=== PATIENT | male | born 1995 | race Caucasian/White ===

== ENCOUNTER 2021-08-21 22:04 | Emergency (ER) | payer MEDICAID ==
[2021-08-21] MEDS ORDERED: SODIUM CHLORIDE 0.9% 1,000 ML IV STA (22:40)
[2021-08-21] MEDS ORDERED: ONDANSETRON 4 MG/2 ML VIAL IVP STA (22:40)
[2021-08-21] MEDS ORDERED: KETOROLAC 15 MG/ML 1 ML VIAL IVP STA (22:40)
--- NOTE | 2021-08-21 22:43 | ED ---
General Adult HPI - General Chief complaint: Back Pain/Injury Stated complaint: Back/Flank pain Time Seen by Provider: 08/21/21 22:36 Source: patient, RN notes reviewed Mode of arrival: ambulatory Limitations: no limitations - History of Present Illness Initial comments: This is a pleasant 26-year-old male who presents emergency by complaining of right flank pain. Patient states this morning on for a few hours. Patient states when he went to work he thought was pulled muscles abdomen. However he now notes that the pain has migrated up to the right flank pain comes all-around from the right CVA area. Patient did have some nausea and vomiting. Does ascertain that the pain radiated into the testicle area but only transiently. He denies any testicular or scrotal pain now. No hematuria. No fever or chills. No headache, no fever or chills, no changes in vision or hearing, no sore throat or difficulty with speech, no neck pain, no chest pain or shortness of breath, no abdominal pain, no nausea or vomiting, no changes in urination or bowel movements, no numbness or tingling, no extremity pain, no skin rashes or les ions. Patient has history of herniorrhaphy. No history kidney stones. - Related Data Previous Rx's Medication Instructions Recorded HYDROcodone/APAP 5-325MG [[place] 1 tab PO Q6HR PRN 3 Days #12 tab 08/22/21 5-325] Naproxen [Naprosyn] 500 mg PO Q12HR #24 tab 08/22/21 Ondansetron [Zofran ODT] 4 mg PO Q8HR #20 tab 08/22/21 Tamsulosin [Flomax] 0.4 mg PO DAILY #7 cap 08/22/21 Allergies Allergy/AdvReac Type Severity Reaction Status Date / Time No Known Allergies Allergy Verified 08/21/21 22:33 Review of Systems ROS Statement: Those systems with pertinent positive or pertinent negative responses have been documented in the HPI. ROS Other: All systems not noted in ROS Statement are negative. Past Medical History Past Medical History: No Reported History History of Any Multi-Drug Resistant Organisms: None Reported Past Surgical History: No Surgical Hx Reported Past Psychological History: No Psychological Hx Reported Smoking Status: Never smoker Past Alcohol Use History: None Reported Past Drug Use History: None Reported General Exam Limitations: no limitations General appearance: alert, in no apparent distress Head exam: Present: atraumatic, normocephalic, normal inspection Eye exam: Present: normal appearance, PERRL, EOMI. Absent: scleral icterus, conjunctival injection, periorbital swelling ENT exam: Present: normal exam, mucous membranes moist Neck exam: Present: normal inspection, full ROM. Absent: tenderness, meningismus, lymphadenopathy Respiratory exam: Present: normal lung sounds bilaterally. Absent: respiratory distress, wheezes, rales, rhonchi, stridor Cardiovascular Exam: Present: regular rate, normal rhythm, normal heart sounds. Absent: systolic murmur, diastolic murmur, rubs, gallop, clicks GI/Abdominal exam: Present: soft, normal bowel sounds. Absent: distended, tenderness, guarding, rebound, rigid Extremities exam: Present: normal inspection, full ROM, normal capillary refill. Absent: tenderness, pedal edema, joint swelling, calf tenderness Back exam: Present: normal inspection, CVA tenderness (R). Absent: CVA tenderness (L) Neurological exam: Present: alert, oriented X3, CN II-XII intact Psychiatric exam: Present: normal affect, normal mood Skin exam: Present: warm, dry, intact, normal color. Absent: rash Course Vital Signs 08/21/21 08/21/21 22:31 23:58 Temperature 98.1 F Pulse Rate 109 H 78 Respiratory 20 18 Rate Blood Pressure 153/106 132/92 O2 Sat by Pulse 95 95 Oximetry - Reevaluation(s) Reevaluation #1: 08/22/21 00:09 Medical record is reviewed Symptoms are improved here in the emergency department Patient is informed of results and questions answered Patient in no distress Medical Decision Making - Medical Decision Making Patient symptomology most consistent with ureterolithiasis. Other etiologies such as appendicitis, gallbladder disease, pancreatitis, colitis or other intra- abdominal inflammatory versus infectious etiology is possible but less likely. Patient has a 3 mm distal right ureteral stone as well as a 1 cm intrarenal stone on the right. Discussed all findings with the patient. Discussed treatment plan. Patient should pass the stone. Discussed medications as well as hydration strategies. Patient voiced understanding. All questions answered. Gave the patient follow-up with urology. Urine strainer provided. Discussed possible stone composition. Patient was told to return to the ER for any signs or symptoms worsen. Told to return immediately if any other problems arise. All questions answered. Treatment plan discussed. Patient in agreement Every effort has been made to ensure accuracy of this dictation. However, due to the limitations of electronic medical records and dictation devices, errors in charting still occur. - Lab Data Result diagrams: 08/21/21 22:55 08/21/21 22:55 Lab Results 08/21/21 08/21/21 08/21/21 Range/Units 22:55 22:55 22:55 WBC 8.4 (3.8-10.6) k/uL RBC 5.54 (4.30-5.90) m/uL Hgb 16.9 (13.0-17.5) gm/dL Hct 49.0 (39.0-53.0) % MCV 88.5 (80.0-100.0) fL MCH 30.5 (25.0-35.0) pg MCHC 34.4 (31.0-37.0) g/dL RDW 12.8 (11.5-15.5) % Plt Count 248 (150-450) k/uL MPV 7.3 Neutrophils % 68 % Lymphocytes % 22 % Monocytes % 4 % Eosinophils % 4 % Basophils % 1 % Neutrophils # 5.7 (1.3-7.7) k/uL Lymphocytes # 1.8 (1.0-4.8) k/uL Monocytes # 0.4 (0-1.0) k/uL Eosinophils # 0.3 (0-0.7) k/uL Basophils # 0.1 (0-0.2) k/uL Sodium 142 (137-145) mmol/L Potassium 3.8 (3.5-5.1) mmol/L Chloride 107 (98-107) mmol/L Carbon Dioxide 27 (22-30) mmol/L Anion Gap 8 mmol/L BUN 11 (9-20) mg/dL Creatinine 0.93 (0.66-1.25) mg/dL Est GFR (CKD-EPI)AfAm >90 (>60 ml/min/1.73 sqM) Est GFR (CKD-EPI)NonAf >90 (>60 ml/min/1.73 sqM) Glucose 127 H (74-99) mg/dL Calcium 8.9 (8.4-10.2) mg/dL Total Bilirubin 0.7 (0.2-1.3) mg/dL AST 26 (17-59) U/L ALT 46 (4-49) U/L Alkaline Phosphatase 79 (38-126) U/L Total Protein 7.3 (6.3-8.2) g/dL Albumin 4.3 (3.5-5.0) g/dL Lipase 45 (23-300) U/L Urine Color Yellow Urine Appearance Clear (Clear) Urine pH 5.5 (5.0-8.0) Ur Specific [place] 1.026 (1.001-1.035) Urine Protein 1+ H (Negative) Urine Glucose (UA) Negative (Negative) Urine Ketones Negative (Negative) Urine Blood Large H (Negative) Urine Nitrite Negative (Negative) Urine Bilirubin Negative (Negative) Urine Urobilinogen <2.0 (<2.0) mg/dL Ur Leukocyte Esterase Negative (Negative) Urine RBC >182 H (0-5) /hpf Urine WBC 5 (0-5) /hpf Ur Squamous Epith Cells <1 (0-4) /hpf Urine Mucus Many H (None) /hpf - Radiology Data Radiology results: report reviewed, image reviewed Disposition Clinical Impression: Ureterolithiasis, Kidney stone on right side, Renal colic on right side Disposition: HOME SELF-CARE Condition: Good Instructions (If sedation given, give patient instructions): Kidney Stones (ED), How to Strain Your Urine (ED) Additional Instructions: Strain urine as directed. Make a follow-up appointment with either your regular doctor or the urologist as discussed. Follow-up with your regular physician as directed. Return to the ER immediately if any symptoms worsen, new symptoms arise, or any other problems develop. Is patient prescribed a controlled substance at d/c from ED?: Yes When asked, does pt state using other controlled substances?: No If prescribed controlled substance>3 days was MAPS reviewed?: Prescribed <3 Days Referrals: Skip Mcghee MD [Primary Care Provider] - 08/25/21 Zen Alvarez MD [STAFF PHYSICIAN] - 08/25/21 Time of Disposition: 00:31
[2021-08-21 23:33] LABS: Basophils # (A) 0.1 k/uL (0-0.2); Basophils % (A) 1 %; Eosinophils # (A) 0.3 k/uL (0-0.7); Eosinophils % (A) 4 %; HGB 16.9 gm/dL (13.0-17.5); Lymphocytes # (A) 1.8 k/uL (1.0-4.8); Lymphocytes % (A) 22 %; MCH 30.5 pg (25.0-35.0); MCHC 34.4 g/dL (31.0-37.0); MCV 88.5 fL (80.0-100.0); Mean Platelet Volume 7.3; Monocytes # (A) 0.4 k/uL (0-1.0); Monocytes % (A) 4 %; Neutrophils # (A) 5.7 k/uL (1.3-7.7); Neutrophils % (A) 68 %; Platelet Count 248 k/uL (150-450); RBC 5.54 m/uL (4.30-5.90); RDW 12.8 % (11.5-15.5); WBC 8.4 k/uL (3.8-10.6)
[2021-08-21 23:41] LABS: ALT 46 U/L (4-49); AST 26 U/L (17-59); African American GFR (CKD) >90 (>60 ml/min/1.73 sqM); Albumin 4.3 g/dL (3.5-5.0); Alkaline Phosphatase 79 U/L (38-126); Anion Gap 8 mmol/L; Blood Urea Nitrogen 11 mg/dL (9-20); Calcium 8.9 mg/dL (8.4-10.2); Carbon Dioxide 27 mmol/L (22-30); Chloride 107 mmol/L (98-107); Glucose 127 mg/dL (74-99); Lipase 45 U/L (23-300); Non-African American GFR(CKD) >90 (>60 ml/min/1.73 sqM); Potassium 3.8 mmol/L (3.5-5.1); Sodium 142 mmol/L (137-145); Total Bilirubin 0.7 mg/dL (0.2-1.3); Total Protein 7.3 g/dL (6.3-8.2)
--- NOTE | 2021-08-21 23:49 | CT ---
EXAMINATION TYPE: CT abdomen pelvis wo con DATE OF EXAM: 08/21/2021 COMPARISON: None HISTORY: RIGHT FLANK PAIN/BACK PAIN. NO PRIOR ON PACS. CT DLP: 1016.4 mGycm Automated exposure control for dose reduction was used. Images obtained from the diaphragm to the floor the pelvis without contrast. Lung bases are clear. There is no pleural effusion. Heart size is normal. There is no pericardial eff usion. There is fatty infiltration of the liver. Gallbladder appears normal. Spleen is intact. There is intact stomach. There is no pancreatic mass. The bile ducts are not dilated. There is no adrenal mass. Kidneys have normal size. There is 1 cm calculus anterior right kidney. The re is possible 3 mm calculus in the distal right ureter. There is very slight fullness of the right u reter. Left kidney shows no sign of obstruction. There is no retroperitoneal adenopathy. Bladder dist ends smoothly. There is minimal prostate calcification on the left side. There is no inguinal hernia. Urinary bladder almost empty. There is no pelvic mass. There is no mesenteric edema. There is no ascites or free air. No sign of a bowel obstruction. Appendix is medial and appears normal. The lumbar vertebrae have normal alignment. No compression fracture. Bony pelvis is intact. The hip joints are intact. Sacroiliac joints appear normal. Lumbar disc spaces are normal. IMPRESSION: Obstructing calculus likely present in the distal right ureter 2 to 3 cm from the bladder. Mild right -sided hydronephrosis. 1 cm calculus anterior right kidney. Normal appendix.
[2021-08-21 23:59] LABS: Appearance,Urine Clear (Clear); Bilirubin,Urine Negative (Negative); Blood,Urine Large (Negative); Color,Urine Yellow; Glucose,Urine (UA) Negative (Negative); Ketones,Urine Negative (Negative); Leukocyte Esterase,Urine Negative (Negative); Mucus,Urine Many /hpf; Nitrite,Urine Negative (Negative); PH, Urine 5.5 (5.0-8.0); Protein,Urine 1+ (Negative); RBC,Urine >182 /hpf (0-5); Specific Gravity,Urine 1.026 (1.001-1.035); Squamous Epithelial Cell,Urine <1 /hpf (0-4); Urobilinogen,Urine <2.0 mg/dL (<2.0); WBC,Urine 5 /hpf (0-5)
[2021-08-22 00:02] VITALS: RESP 18
[2021-08-22] MEDS ORDERED: TAMSULOSIN 0.4 MG CAP.ER.24H PO STA (00:09)
[2021-08-22 00:51] VITALS: BP 132/88; PULSE 84; TEMP 98.3
== END 2021-08-22 00:55 | disposition home or self-care (01) ==
LOC: EC 22:04
DX: N20.2 Calculus of kidney with calculus of ureter (principal)
CPT/HCPCS: 99284; 96374; 96375; 96361; 36415; 80053; 83690; 85025; 81001; 74176; J2405; J1885